=== PATIENT | female | born 1990 | race Caucasian/White ===

== ENCOUNTER 2017-05-20 13:10 | Emergency (ER) | payer OTHER ==
[2017-05-20 13:50] VITALS: BP 134/78; PULSE 83; RESP 16; TEMP 98
--- NOTE | 2017-05-20 14:03 | ED ---
General Adult HPI - General Chief complaint: Needlestick/Exposure Stated complaint: Needle stick Time Seen by Provider: 05/20/17 13:36 Source: patient, RN notes reviewed, old records reviewed Mode of arrival: ambulatory Limitations: no limitations - History of Present Illness Initial comments: 26-year-old female presents emergency Department chief complaint of exposure to SEE. 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 Patient reports that the patient has a known history of hepatitis C. She states that when she went to clean the brush she scratched the dorsum aspect of her left hand. She reports that she did draw some blood and went through 12. Patient states that the patient whose she is in contact with did consent for testing however he did never come here for testing. Patient reports that she has no known history of hepatitis A tingling or hep C. She thinks that she did have a hepatitis B vaccine. - Related Data Home Medications Medication Instructions Recorded Confirmed Smo-Ahmr-Mkovd Acid 1 each PO DAILY 08/07/13 08/07/13 [-U Capsule] Allergies Allergy/AdvReac Type Severity Reaction Status Date / Time No Known Allergies Allergy Verified 05/20/17 13:50 Review of Systems ROS Statement: Those systems with pertinent positive or pertinent negative responses have been documented in the HPI. ROS Other: All systems not noted in ROS Statement are negative. Past Medical History Past Medical History: No Reported History History of Any Multi-Drug Resistant Organisms: MRSA Date of last positivie culture/infection: 2016 MDRO Source:: buttocks Past Surgical History: No Surgical Hx Reported Past Anesthesia/Blood Transfusion Reactions: No Reported Reaction Past Psychological History: No Psychological Hx Reported Smoking Status: Current some day smoker Past Alcohol Use History: Occasional Past Drug Use History: None Reported - Past Family History Mother Family Medical History: Diabetes Mellitus, Hypertension General Exam - General Exam Comments Initial Comments: This patient is a 26-year-old female. No acute distress. General: Well appearing, well nourished, in no distress. Oriented x 3, normal mood and affect . Ambulating without difficulty. Skin: Good turgor, no rash, unusual bruising or prominent lesions Hair: Normal texture and distribution. HEENT: Head: Normocephalic, atraumatic, no visible or palpable masses, depressions, or scaring. Pharynx: Mucosa non-inflamed, no tonsillar hypertrophy or exudate Neck: Supple Heart: No cardiomegaly or thrills; regular rate and rhythm, no murmur or gallop Lungs: Clear to auscultation and percussion Back: Spine normal without deformity or tenderness, no CVA tenderness Extremities: No amputations or deformities, cyanosis, edema or varicosities, peripheral pulses intact Patient is a small to some either abrasion over the dorsum of her left hand between her first and second digit. Musculoskeletal: Normal gait and station. No misalignment, asymmetry, crepitation, defects, tenderness, masses, effusions, decreased range of motion, instability, atrophy or abnormal strength or tone in the head, neck, spine, ribs , pelvis or extremities. Neurologic: CN 2-12 normal. Sensation to pain, touch, and proprioception normal. DTRs normal in upper and lower extremities. No pathologic reflexes. Psychiatric: Oriented X3, intact recent and remote memory, judgment and insight , normal mood and affect Limitations: no limitations Course Vital Signs 05/20/17 13:41 Temperature 98 F Pulse Rate 83 Respiratory 16 Rate Blood Pressure 134/78 O2 Sat by Pulse 100 Oximetry Medical Decision Making - Medical Decision Making Patient is a 26-year-old female chief complaint being HIV and hepatitis testing. She was exposed to patient with hepatitis C. She works in the office and has a small abrasion from a cleaning 2 over her dorsum of her hand. She reports that she initially washed the blood off of that afterward. Patient states that she blew she has a hepatitis B vaccine. At this time we'll perform HIV testing and hepatitis testing. Discussion is follow-up with her peripheral employer and primary care provider for repeat testing to ensure that she does not have anything. Patient was informed post exposure prophylaxis, discussed following up with primary care provider regards as such. Patient understands treatment plan will comply. Return parameters were discussed. Disposition Clinical Impression: Exposure to hepatitis C, Abrasion hand Disposition: HOME SELF-CARE Condition: Good Instructions: Abrasion (ED) Additional Instructions: Patient is a follow-up with primary care provider for further repeat testing in one month. Then repeat further testing and 2 months after that. For any redness swelling or drainage around the abrasion site. Return to emergency department if any alarming signs or symptoms occur. Referrals: Jeffery Daniel Jr, [Primary Care Provider] - 1-2 days Time of Disposition: 13:59
[2017-05-20 19:05] LABS: Hepatitis A Antibody IgM Non-Reactive (Non-Reactive); Hepatitis B Core IgM Non-Reactive (Non-Reactive); Hepatitis B Surface AB- Quant 35.1 mIU/mL; Hepatitis C IgG Antibody Non-Reactive (Non-Reactive)
[2017-05-20 21:48] LABS: HIV AB P24 Non-Reactive (Non-Reactive); HIV P24 AG Non-Reactive (Non-Reactive)
== END 2017-05-20 14:25 | disposition home or self-care (01) ==
LOC: EC 13:10
DX: S60.512A Abrasion of left hand, initial encounter (principal); Z20.5 Contact with and (suspected) exposure to viral hepatitis; F17.200 Nicotine dependence, unspecified, uncomplicated; Z79.899 Other long term (current) drug therapy; Z86.14 Personal history of Methicillin resistant Staphylococcus aureus infection; X58.XXXA Exposure to other specified factors, initial encounter; Y93.89 Activity, other specified; Y92.531 Health care provider office as the place of occurrence of the external cause; Y99.0 Civilian activity done for income or pay
CPT/HCPCS: 36415; 80074; 86706; 86803; 87390; 99283

== ENCOUNTER → 2022-03-12 | Outpatient (CLI) | payer BC ==
--- NOTE | 2022-03-12 07:51 | US ---
EXAMINATION TYPE: US abdomen complete DATE OF EXAM: 03/12/2022 COMPARISON: NONE CLINICAL HISTORY: NAUSEA R110. Bloating, nausea, pain TECHNIQUE: Multiple sonographic images of the abdomen are obtained. FINDINGS: EXAM MEASUREMENTS: Liver Length: 15.1 cm Gallbladder Wall: 0.20 cm CBD: Obscured Spleen: 9.6 cm Right Kidney: 11.2 x 5.2 x 4.3 cm Left Kidney: 11.3 x 4.5 x 5.3 cm [employer]PER[employer]OR NOTES: Limited due to gas Pancreas: Limited visibility Liver: Appears wnl Gallbladder: Hyperechoic area seen that appears to be attached to the gallbladder wall: 0.5 x 0.5 x 0.3 cm. Evidence for sonographic Gonzalez's sign: No CBD: Obscured Spleen: Appears wnl Right Kidney: No hydronephrosis or masses seen Left Kidney: No hydronephrosis or masses seen Upper IVC: Appears wnl Abd Aorta: Portions seen appear wnl, Iliacs were obscured. No aneurysm and visualized abdominal aorta. IVC is seen in the hepatic dome. Visualized pancreas show s no worrisome mass or ductal dilatation. Visualized liver is slightly heterogeneous without solid or cystic mass. Gallbladder shows punctate 3 mm nonmobile focus could reflect tiny polyp. No shadowing mobile gallstones. No hydronephrosis seen bilaterally. Spleen is normal in size. Common bile duct is not distinctly seen. No intrahepatic biliary dilatation noted. IMPRESSION: Slightly suboptimal study. No acute findings are evident.
== END | disposition home or self-care (01) ==
LOC: RADUSWWP 07:01
PROVIDERS: ATTEND Family Medicine
DX: R11.0 Nausea (principal); R10.84 Generalized abdominal pain; R14.0 Abdominal distension (gaseous)
CPT/HCPCS: 76700